=== PATIENT | female | born 1970 | race African-American/Black ===

== ENCOUNTER 2019-01-22 12:06 | Inpatient (IN) ==
[2019-01-22] MEDS ORDERED: SODIUM CHLORIDE 0.9% 1,000 ML IV STA (12:41)
[2019-01-22] MEDS ORDERED: PIPERACILLIN/TAZOBACTAM 3,375 MG in SODIUM CHLORIDE 0.9% 100 ML IV STA (12:41)
[2019-01-22 13:49] LABS: Basophils # 0.1 10*3/uL (0.0-0.2); Basophils % 0.3 % (0.0-0.8); Eosinophils % 0.1 % (0.00-10.9); Hematocrit 26.8 VOL% (35.7-47.0); Hemoglobin 8.1 GM/DL (12.0-16.0); Immature Granulocytes % 1.3 %; Immature Granulocytes Absolute 0.25 #; Lymphocytes # 1.1 10*3/uL (1.4-4.0); Lymphocytes % 5.8 % (21.3-54.2); Mean Corpuscular HGB Conc 30.2 GM/DL (32-36); Mean Corpuscular Hemoglobin 22 PG (27-34); Mean Corpuscular Volume 74.2 FL (87-102); Mean Platelet Volume 9.1 FL (9.6-12.0); Monocytes # 0.9 10*3/uL (0.11-0.8); Monocytes % 4.8 % (1.7-12.7); Neutrophils # 16.8 10*3/uL (1.4-7.4); Neutrophils % 87.7 % (38.7-73.9); Platelet Count 578 T/CUMM (130-400); Red Blood Count 3.61 MC/CUMM (3.8-5.5); White Blood Count 19.2 T/CUMM (4-12)
[2019-01-22 14:22] LABS: Albumin 2.4 G/DL (3.4-5.0); Bilirubin,Total 1.1 MG/DL (0.2-1.0); Calcium 8.6 MG/DL (8.5-10.1); Osmolality,Calculated 274.7 MOS/KG (273-304); Potassium 2.6 MMOL/L (3.5-5.1); Total Protein 7.7 G/DL (6.4-8.3)
[2019-01-22 14:30] LABS: Apearance,Urine CLOUDY (Clear); Bilirubin,Urine Negative (Negative); Blood, Urine Small mg/dL (Negative); Glucose,Urine (UA) Negative (Negative); Ketones,Urine 20 mg/dL (Negative); Nitrite,Urine Negative (Negative); Protein,Urine 100 MG/DL; RBC,Urine 17 /HPF (0-4); Urine Color Yellow (Yellow); Urine Specific Gravity 1.014 (1.001-1.035); WBC,Urine 1736 /HPF (0-6)
[2019-01-22] MEDS ORDERED: SODIUM CHLORIDE 0.9% 2,050 ML IV ONE (15:43)
[2019-01-22] MEDS ORDERED: ONDANSETRON 4 MG/2 ML VIAL IV PRN (15:49)
[2019-01-22 18:42] LABS: Risk Ratio 9.5
[2019-01-22] MEDS: SODIUM CHLOR 0.45% KCL 20 MEQ 20 MEQ/1,000 ML BAG IV SCH (21:09)
[2019-01-22] MEDS: VANCOMYCIN INJ 1,000 MG in SODIUM CHLORIDE 0.9% 250 ML IV SCH (21:12)
[2019-01-22] MEDS: METHENAMINE HIPPURATE 1 GM TABLET PO SCH (21:13)
[2019-01-22] MEDS: ACETAMINOPHEN 325 MG TABLET PO PRN (21:13)
[2019-01-22] MEDS: ASCORBIC ACID 500 MG TABLET PO SCH (21:13)
[2019-01-23] MEDS: PIPERACILLIN/TAZOBACTAM 3,375 MG in SODIUM CHLORIDE 0.9% 100 ML IV SCH ×3 (00:16→17:54)
[2019-01-23] MEDS: POTASSIUM CHLORIDE 20 MEQ TABLET PO PRN ×7 (00:42→17:49)
[2019-01-23] MEDS: SODIUM HYPOCHLORITE 0.25% IRRIG 473 ML BOTTLE TOP SCH ×2 (00:44→08:58)
[2019-01-23 05:59] LABS: Basophils # 0.1 10*3/uL (0.0-0.2); Basophils % 0.3 % (0.0-0.8); Eosinophils % 0.1 % (0.00-10.9); Hematocrit 23.4 VOL% (35.7-47.0); Hemoglobin 7.4 GM/DL (12.0-16.0); Immature Granulocytes % 1.7 %; Immature Granulocytes Absolute 0.34 #; Lymphocytes % 10.2 % (21.3-54.2); Mean Corpuscular HGB Conc 31.6 GM/DL (32-36); Mean Corpuscular Hemoglobin 23 PG (27-34); Mean Corpuscular Volume 73.6 FL (87-102); Mean Platelet Volume 9.7 FL (9.6-12.0); Monocytes # 1.4 10*3/uL (0.11-0.8); Monocytes % 7.2 % (1.7-12.7); Neutrophils # 16.1 10*3/uL (1.4-7.4); Neutrophils % 80.5 % (38.7-73.9); Platelet Count 551 T/CUMM (130-400); Red Blood Count 3.18 MC/CUMM (3.8-5.5); Red Cell Distribution Width 15.9 % (9.3-17.3)
[2019-01-23 06:22] LABS: % Iron Saturation 8.3 % (18-50); Ferritin 165.9 ng/ml (8-252)
[2019-01-23 06:23] LABS: Albumin 1.9 G/DL (3.4-5.0); Calcium 7.9 MG/DL (8.5-10.1); Osmolality,Calculated 278.3 MOS/KG (273-304); Potassium 2.6 MMOL/L (3.5-5.1); Total Protein 6.5 G/DL (6.4-8.3)
[2019-01-23] MEDS: LEFLUNOMIDE 10 MG TABLET PO SCH (08:47)
[2019-01-23] MEDS: ASCORBIC ACID 500 MG TABLET PO SCH ×2 (08:48→20:05)
[2019-01-23] MEDS: METHENAMINE HIPPURATE 1 GM TABLET PO SCH ×2 (08:48→20:05)
[2019-01-23] MEDS: ZINC SULFATE 220 MG CAPSULE PO SCH (08:48)
[2019-01-23] MEDS: MULTIVITAMIN (BEROCCA) TABLET PO SCH (08:48)
[2019-01-23] MEDS ORDERED: SODIUM CHLORIDE 0.9% 1,000 ML IV PRN (10:09)
[2019-01-23] MEDS: VANCOMYCIN INJ 1,000 MG in SODIUM CHLORIDE 0.9% 250 ML IV SCH ×2 (11:08→22:08)
[2019-01-23] MEDS: SODIUM CHLOR 0.45% KCL 20 MEQ 20 MEQ/1,000 ML BAG IV SCH ×3 (11:37→23:29)
[2019-01-23] MEDS: amLODIPine 5 MG TABLET PO SCH (12:39)
[2019-01-23] MEDS: DOXAZOSIN 1 MG TABLET PO SCH (12:39)
[2019-01-23] MEDS: ACETAMINOPHEN 325 MG TABLET PO PRN ×2 (12:39→17:49)
[2019-01-23 13:47] LABS: Folate 4.5 NG/ML (5.4-24.0)
[2019-01-23] MEDS ORDERED: GENTAMICIN INJ 160 MG in SODIUM CHLORIDE 0.9% 100 ML IV ONE (17:06)
[2019-01-23] MEDS ORDERED: GENTAMICIN INJ 390 MG in SODIUM CHLORIDE 0.9% 100 ML IV SCH (18:30)
[2019-01-23] MEDS: cefTAZidime 1,000 MG in SYRINGE 1 EACH IV SCH (21:00)
[2019-01-23 23:05] LABS: Hematocrit 28.9 VOL% (35.7-47.0); Hemoglobin 9.4 GM/DL (12.0-16.0)
[2019-01-23 23:19] LABS: INR 1.1; PT Patient Result 11.8 SECS
[2019-01-24] MEDS: POTASSIUM CHLORIDE 20 MEQ TABLET PO PRN ×4 (00:11→06:09)
[2019-01-24] MEDS: SODIUM CHLOR 0.45% KCL 20 MEQ 20 MEQ/1,000 ML BAG IV SCH (02:30)
[2019-01-24] MEDS: cefTAZidime 1,000 MG in SYRINGE 1 EACH IV SCH ×3 (04:37→22:23)
[2019-01-24 05:36] LABS: Basophils % 0.2 % (0.0-0.8); Eosinophils % 0.1 % (0.00-10.9); Hematocrit 29.1 VOL% (35.7-47.0); Hemoglobin 9.4 GM/DL (12.0-16.0); Immature Granulocytes % 1.3 %; Immature Granulocytes Absolute 0.27 #; Lymphocytes # 2.2 10*3/uL (1.4-4.0); Mean Corpuscular HGB Conc 32.3 GM/DL (32-36); Mean Corpuscular Hemoglobin 24 PG (27-34); Mean Corpuscular Volume 73.7 FL (87-102); Mean Platelet Volume 9.4 FL (9.6-12.0); Monocytes # 1.5 10*3/uL (0.11-0.8); Monocytes % 7.3 % (1.7-12.7); Neutrophils % 80.1 % (38.7-73.9); Platelet Count 518 T/CUMM (130-400); Red Blood Count 3.95 MC/CUMM (3.8-5.5); White Blood Count 20.1 T/CUMM (4-12)
[2019-01-24 06:05] LABS: Albumin 1.8 G/DL (3.4-5.0); Bilirubin,Total 1.2 MG/DL (0.2-1.0); Calcium 8.3 MG/DL (8.5-10.1); Osmolality,Calculated 276.3 MOS/KG (273-304); Potassium 3.4 MMOL/L (3.5-5.1); Total Protein 6.5 G/DL (6.4-8.3)
[2019-01-24 06:17] LABS: Band Neutrophils 8 % (0-10); Elliptocytes Few; Hypochromasia 1+; Lymphocytes 5 % (20-55); Platelet Estimate Adequate; Segmented Neutrophils 79 % (50-85); Total Cells Counted 100
[2019-01-24] MEDS ORDERED: POTASSIUM PHOSPHATE 30 MMOL in SODIUM CHLORIDE 0.9% 250 ML IV ONE (09:01)
[2019-01-24] MEDS: VANCOMYCIN INJ 1,000 MG in SODIUM CHLORIDE 0.9% 250 ML IV SCH ×2 (09:25→20:50)
[2019-01-24] MEDS: SODIUM HYPOCHLORITE 0.25% IRRIG 473 ML BOTTLE TOP SCH (09:26)
[2019-01-24] MEDS: IRON SUCROSE 200 MG in SODIUM CHLORIDE 0.9% 100 ML IV SCH (11:41)
[2019-01-24] MEDS ORDERED: LIDOCAINE 1%/EPI INJ 20 ML VIAL ONE (12:57)
[2019-01-24] MEDS ORDERED: BUPIVACAINE 0.5% 50 ML VIAL ONE (12:57)
[2019-01-24] MEDS: METHENAMINE HIPPURATE 1 GM TABLET PO SCH ×2 (13:56→20:58)
[2019-01-24] MEDS: ASCORBIC ACID 500 MG TABLET PO SCH ×2 (13:57→20:58)
[2019-01-24] MEDS ORDERED: SEVOFLURANE 1 UNIT/15 MINUTE INH ONE (14:38)
[2019-01-24] MEDS ORDERED: PROPOFOL 200 MG/20 ML VIAL IV ONE (14:38)
[2019-01-24] MEDS ORDERED: fentaNYL 100 MCG/2 ML VIAL ONE (14:39)
[2019-01-24] MEDS ORDERED: MIDAZOLAM 2 MG/2 ML VIAL ONE (14:39)
[2019-01-24] MEDS: DOXAZOSIN 1 MG TABLET PO SCH (15:19)
[2019-01-24] MEDS: LACTOBACILLUS ACIDOPHILUS/BULGARICUS CAPLET PO SCH (15:20)
[2019-01-24] MEDS: LEFLUNOMIDE 10 MG TABLET PO SCH (15:20)
[2019-01-24] MEDS: amLODIPine 5 MG TABLET PO SCH (15:21)
[2019-01-24] MEDS: MULTIVITAMIN (BEROCCA) TABLET PO SCH (15:21)
[2019-01-24] MEDS: ZINC SULFATE 220 MG CAPSULE PO SCH (15:21)
[2019-01-24] MEDS ORDERED: ETANERCEPT SUBCUT SCH (15:49)
[2019-01-24] MEDS: ACETAMINOPHEN 325 MG TABLET PO PRN (16:11)
[2019-01-25 04:55] LABS: Basophils # 0.1 10*3/uL (0.0-0.2); Basophils % 0.3 % (0.0-0.8); Eosinophils # 0.2 10*3/uL (0.0-0.87); Eosinophils % 0.9 % (0.00-10.9); Hematocrit 27.9 VOL% (35.7-47.0); Immature Granulocytes % 1.6 %; Immature Granulocytes Absolute 0.29 #; Lymphocytes # 2.6 10*3/uL (1.4-4.0); Lymphocytes % 14.1 % (21.3-54.2); Mean Corpuscular HGB Conc 32.3 GM/DL (32-36); Mean Corpuscular Hemoglobin 24 PG (27-34); Mean Corpuscular Volume 74.2 FL (87-102); Mean Platelet Volume 9.5 FL (9.6-12.0); Monocytes # 1.3 10*3/uL (0.11-0.8); Monocytes % 7.3 % (1.7-12.7); Neutrophils # 13.8 10*3/uL (1.4-7.4); Neutrophils % 75.8 % (38.7-73.9); Platelet Count 473 T/CUMM (130-400); Red Blood Count 3.76 MC/CUMM (3.8-5.5); Red Cell Distribution Width 16.6 % (9.3-17.3); White Blood Count 18.3 T/CUMM (4-12)
[2019-01-25 05:45] LABS: Albumin 1.5 G/DL (3.4-5.0); Bilirubin,Total 0.5 MG/DL (0.2-1.0); Calcium 8.5 MG/DL (8.5-10.1); Osmolality,Calculated 266.1 MOS/KG (273-304); Potassium 3.8 MMOL/L (3.5-5.1); Total Protein 6.4 G/DL (6.4-8.3)
[2019-01-25] MEDS: cefTAZidime 1,000 MG in SYRINGE 1 EACH IV SCH ×3 (06:23→20:53)
[2019-01-25] MEDS: LEFLUNOMIDE 10 MG TABLET PO SCH (09:19)
[2019-01-25] MEDS: ZINC SULFATE 220 MG CAPSULE PO SCH (09:19)
[2019-01-25] MEDS: amLODIPine 5 MG TABLET PO SCH (09:19)
[2019-01-25] MEDS: MULTIVITAMIN (BEROCCA) TABLET PO SCH (09:20)
[2019-01-25] MEDS: DOXAZOSIN 1 MG TABLET PO SCH (09:20)
[2019-01-25] MEDS: METHENAMINE HIPPURATE 1 GM TABLET PO SCH ×2 (09:20→20:53)
[2019-01-25] MEDS: ASCORBIC ACID 500 MG TABLET PO SCH ×2 (09:20→20:53)
[2019-01-25] MEDS: LACTOBACILLUS ACIDOPHILUS/BULGARICUS CAPLET PO SCH (09:20)
[2019-01-25] MEDS: IRON SUCROSE 200 MG in SODIUM CHLORIDE 0.9% 100 ML IV SCH (09:22)
[2019-01-25] MEDS: VANCOMYCIN INJ 1,000 MG in SODIUM CHLORIDE 0.9% 250 ML IV SCH (09:22)
[2019-01-25] MEDS ORDERED: MAGNESIUM OXIDE 400 MG TABLET PO ONE (11:04)
[2019-01-25] MEDS: SODIUM HYPOCHLORITE 0.25% IRRIG 473 ML BOTTLE TOP SCH (14:20)
[2019-01-25] MEDS: VANCOMYCIN INJ 1,250 MG in SODIUM CHLORIDE 0.9% 250 ML IV SCH (17:50)
[2019-01-26] MEDS: cefTAZidime 1,000 MG in SYRINGE 1 EACH IV SCH ×3 (05:06→20:29)
[2019-01-26] MEDS: VANCOMYCIN INJ 1,250 MG in SODIUM CHLORIDE 0.9% 250 ML IV SCH ×2 (05:06→18:22)
[2019-01-26 05:32] LABS: Basophils # 0.1 10*3/uL (0.0-0.2); Basophils % 0.4 % (0.0-0.8); Eosinophils # 0.3 10*3/uL (0.0-0.87); Eosinophils % 1.5 % (0.00-10.9); Hematocrit 29.8 VOL% (35.7-47.0); Hemoglobin 9.6 GM/DL (12.0-16.0); Immature Granulocytes % 2.2 %; Immature Granulocytes Absolute 0.41 #; Lymphocytes # 2.9 10*3/uL (1.4-4.0); Lymphocytes % 15.5 % (21.3-54.2); Mean Corpuscular HGB Conc 32.2 GM/DL (32-36); Mean Corpuscular Hemoglobin 24 PG (27-34); Mean Corpuscular Volume 73.6 FL (87-102); Mean Platelet Volume 9.2 FL (9.6-12.0); Monocytes # 1.3 10*3/uL (0.11-0.8); Monocytes % 6.9 % (1.7-12.7); Neutrophils # 13.6 10*3/uL (1.4-7.4); Neutrophils % 73.5 % (38.7-73.9); Platelet Count 527 T/CUMM (130-400); Red Blood Count 4.05 MC/CUMM (3.8-5.5); White Blood Count 18.5 T/CUMM (4-12)
[2019-01-26 06:09] LABS: Albumin 1.6 G/DL (3.4-5.0); Bilirubin,Total 0.7 MG/DL (0.2-1.0); Calcium 8.6 MG/DL (8.5-10.1); Osmolality,Calculated 268.8 MOS/KG (273-304); Potassium 3.4 MMOL/L (3.5-5.1); Total Protein 6.6 G/DL (6.4-8.3)
[2019-01-26] MEDS: MULTIVITAMIN (BEROCCA) TABLET PO SCH (09:53)
[2019-01-26] MEDS: ASCORBIC ACID 500 MG TABLET PO SCH ×2 (09:53→20:30)
[2019-01-26] MEDS: POTASSIUM CHLORIDE 20 MEQ TABLET PO PRN (09:53)
[2019-01-26] MEDS: IRON SUCROSE 200 MG in SODIUM CHLORIDE 0.9% 100 ML IV SCH (09:53)
[2019-01-26] MEDS: ZINC SULFATE 220 MG CAPSULE PO SCH (09:53)
[2019-01-26] MEDS: LEFLUNOMIDE 10 MG TABLET PO SCH (09:53)
[2019-01-26] MEDS: LACTOBACILLUS ACIDOPHILUS/BULGARICUS CAPLET PO SCH (09:53)
[2019-01-26] MEDS: DOXAZOSIN 1 MG TABLET PO SCH (09:54)
[2019-01-26] MEDS: SODIUM HYPOCHLORITE 0.25% IRRIG 473 ML BOTTLE TOP SCH (09:54)
[2019-01-26] MEDS: METHENAMINE HIPPURATE 1 GM TABLET PO SCH ×2 (09:54→20:30)
[2019-01-26] MEDS: amLODIPine 5 MG TABLET PO SCH (09:54)
[2019-01-27] MEDS: VANCOMYCIN INJ 1,250 MG in SODIUM CHLORIDE 0.9% 250 ML IV SCH (05:57)
[2019-01-27] MEDS: cefTAZidime 1,000 MG in SYRINGE 1 EACH IV SCH ×2 (05:57→14:03)
[2019-01-27] MEDS: IRON SUCROSE 200 MG in SODIUM CHLORIDE 0.9% 100 ML IV SCH (09:41)
[2019-01-27] MEDS: SODIUM HYPOCHLORITE 0.25% IRRIG 473 ML BOTTLE TOP SCH (09:42)
[2019-01-27] MEDS: amLODIPine 5 MG TABLET PO SCH (09:43)
[2019-01-27] MEDS: ASCORBIC ACID 500 MG TABLET PO SCH (09:43)
[2019-01-27] MEDS: DOXAZOSIN 1 MG TABLET PO SCH (09:44)
[2019-01-27] MEDS: METHENAMINE HIPPURATE 1 GM TABLET PO SCH (09:44)
[2019-01-27] MEDS: LEFLUNOMIDE 10 MG TABLET PO SCH (09:44)
[2019-01-27] MEDS: ZINC SULFATE 220 MG CAPSULE PO SCH (09:44)
[2019-01-27] MEDS: MULTIVITAMIN (BEROCCA) TABLET PO SCH (09:44)
[2019-01-27] MEDS: LACTOBACILLUS ACIDOPHILUS/BULGARICUS CAPLET PO SCH (09:44)
[2019-01-27] MEDS ORDERED: POTASSIUM CHLORIDE 20 MEQ TABLET PO ONE (11:56)
[2019-01-27 14:02] VITALS: BP 118/75
== END 2019-01-27 14:20 | disposition home health service (06) | DRG 580 ==
LOC: EDUNIT# → EDBD → N.ED 12:06 → SUATTDRO 15:46 → N.EDINP 15:46 → N.5E 18:18
PROVIDERS: ADMIT Hospitalist; ATTEND Internal Medicine